=== PATIENT | female | born 1985 | race African-American/Black ===

== ENCOUNTER 2021-12-11 11:26 | Inpatient (IN) ==
[2021-12-11] MEDS ORDERED: METHYLERGONOVINE 0.2 MG/1 ML AMP IM PRN (12:56)
[2021-12-11] MEDS ORDERED: TRANEXAMIC ACID 1,000 MG in SODIUM CHLORIDE 0.9% 100 ML IV PRN (12:56)
[2021-12-11] MEDS ORDERED: OXYTOCIN/LR 20 UNIT/1,000 ML BAG IV ONE (12:56)
[2021-12-11] MEDS ORDERED: CARBOPROST TROMETHAMINE 250 MCG/ML AMP IM PRN (12:56)
[2021-12-11] MEDS ORDERED: miSOPROStoL 200 MCG TABLET RECTAL PRN (12:56)
[2021-12-11 13:26] LABS: Basophils % 0.2 % (0.0-0.8); Eosinophils # 0.1 10*3/uL (0.0-0.87); Hematocrit 33.5 VOL% (35.7-47.0); Hemoglobin 11.2 GM/DL (12.0-16.0); Immature Granulocytes % 0.5 %; Immature Granulocytes Absolute 0.04 #; Lymphocytes # 1.4 10*3/uL (1.4-4.0); Lymphocytes % 17.9 % (21.3-54.2); Mean Corpuscular HGB Conc 33.4 GM/DL (32-36); Mean Corpuscular Volume 84.2 FL (87-102); Mean Platelet Volume 12.6 FL (9.6-12.0); Monocytes % 7.5 % (1.7-12.7); Neutrophils % 72.9 % (38.7-73.9); Platelet Count 150 T/CUMM (130-400); Red Blood Count 3.98 MC/CUMM (3.8-5.5); Red Cell Distribution Width 12.8 % (9.3-17.3)
[2021-12-11] MEDS: LABETALOL 100 MG TABLET PO SCH ×2 (13:41→21:08)
[2021-12-11 13:51] LABS: Anisocytosis Slight; Hypochromia Slight; Lymphocytes 18 % (20-55); Platelet Estimate Adequate; Polychromasia Few; Segmented Neutrophils 71 % (50-85); Total Cells Counted 100
[2021-12-12] MEDS ORDERED: MEPERIDINE 50 MG/1 ML VIAL IV ONE (04:56)
[2021-12-12] MEDS ORDERED: FAMOTIDINE 20 MG/2 ML VIAL IV ONE (06:00)
[2021-12-12] MEDS ORDERED: ceFAZolin 2,000 MG/50 ML DUPLEX IV ONE (06:00)
[2021-12-12] MEDS ORDERED: CITRIC ACID/SODIUM CITRATE 30 ML UDCUP PO ONE (06:00)
[2021-12-12] MEDS: LACTATED RINGERS 1,000 ML IV SCH ×2 (06:15→14:47)
[2021-12-12] MEDS ORDERED: OXYTOCIN/LR 30 UNIT/1,000 ML BAG IV ONE (07:40)
[2021-12-12] MEDS ORDERED: OXYTOCIN 10 UNIT/ML VIAL IM ONE (07:40)
[2021-12-12] MEDS: LABETALOL 100 MG TABLET PO SCH (08:30)
[2021-12-12] MEDS ORDERED: PHENYLEPHRINE 1 MG/10 ML SYRINGE IV ONE (14:56)
[2021-12-12] MEDS ORDERED: ONDANSETRON 4 MG/2 ML VIAL ONE (14:56)
[2021-12-12] MEDS ORDERED: BUPIVACAINE SPINAL 0.75% 2 ML AMP SPINAL ONE (14:56)
[2021-12-12] MEDS ORDERED: buprenorphine HCL 0.3 MG/ML VIAL ONE (14:57)
[2021-12-12] MEDS ORDERED: KETOROLAC 30 MG/1 ML VIAL ONE (15:34)
[2021-12-12] MEDS ORDERED: ACETAMINOPHEN INJ 1,000 MG/100 ML VIAL IV ONE (15:34)
[2021-12-12 15:48] LABS: Cord Arterial Blood HCO3 25.4 MMOL/L
[2021-12-12 15:50] LABS: Cord Venous Blood HCO3 22.7 MMOL/L; Cord Venous Blood PCO2 40.8 MMHG; Cord Venous Blood PO2 23.9 MMHG
[2021-12-12 15:52] LABS: Bacteria,Urine Occasional /HPF (Few); RBC,Urine <1 /HPF (0-4); Squamous Epithelial Cell,Urine Occasional /HPF (0-10)
[2021-12-12 15:58] LABS: Bilirubin,Urine Negative (Negative); Blood, Urine Negative (Negative); Glucose,Urine (UA) Negative (Negative); Ketones,Urine Negative (Negative); Nitrite,Urine Negative (Negative); Protein,Urine Negative (Negative); Urine Appearance Clear (Clear); Urine Color Light Yellow (Yellow); Urine Specific Gravity 1.015 (1.001-1.035); Urine Urobilinogen 0.2 eU/dL (<2.0); Urine pH 6.5 (4.5-8.0)
[2021-12-12] MEDS ORDERED: OXYTOCIN/LR 20 UNIT/1,000 ML BAG IV ONE (16:50)
[2021-12-12] MEDS ORDERED: ONDANSETRON 4 MG/2 ML VIAL IV PRN (16:50)
[2021-12-12] MEDS ORDERED: ACETAMINOPHEN 325 MG TABLET PO PRN (16:50)
[2021-12-12] MEDS ORDERED: MAGNESIUM HYDROXIDE SUSP 30 ML UDCUP PO PRN (16:50)
[2021-12-12] MEDS ORDERED: RHO(D) IMMUNE GLOBULIN 300 MCG SYRINGE IM ONE (16:50)
[2021-12-12] MEDS ORDERED: LACTATED RINGERS 1,000 ML IV SCH (17:00)
[2021-12-12] MEDS: DOCUSATE SODIUM 100 MG CAPSULE PO SCH (21:24)
[2021-12-12 23:12] LABS: Basophils % 0.2 % (0.0-0.8); Eosinophils # 0.1 10*3/uL (0.0-0.87); Eosinophils % 0.8 % (0.00-10.9); Hematocrit 32.3 VOL% (35.7-47.0); Hemoglobin 10.5 GM/DL (12.0-16.0); Immature Granulocytes % 0.4 %; Immature Granulocytes Absolute 0.04 #; Lymphocytes # 1.2 10*3/uL (1.4-4.0); Lymphocytes % 13.3 % (21.3-54.2); Mean Corpuscular HGB Conc 32.5 GM/DL (32-36); Mean Corpuscular Volume 84.6 FL (87-102); Mean Platelet Volume 12.2 FL (9.6-12.0); Monocytes % 5.7 % (1.7-12.7); Neutrophils % 79.6 % (38.7-73.9); Platelet Count 138 T/CUMM (130-400); Red Blood Count 3.82 MC/CUMM (3.8-5.5); Red Cell Distribution Width 12.9 % (9.3-17.3); White Blood Count 9.2 T/CUMM (4-12)
[2021-12-13] MEDS ORDERED: KETOROLAC 30 MG/1 ML VIAL IV SCH (00:01)
[2021-12-13] MEDS ORDERED: ACETAMINOPHEN 500 MG TABLET PO SCH ×4 (00:01→06:00)
[2021-12-13] MEDS ORDERED: KETOROLAC 30 MG/1 ML VIAL IV PRN (00:42)
[2021-12-13] MEDS: ACETAMINOPHEN 500 MG TABLET PO SCH ×2 (01:20→09:28)
[2021-12-13 06:54] LABS: Basophils % 0.2 % (0.0-0.8); Eosinophils # 0.1 10*3/uL (0.0-0.87); Eosinophils % 0.8 % (0.00-10.9); Hematocrit 30.8 VOL% (35.7-47.0); Immature Granulocytes % 0.5 %; Immature Granulocytes Absolute 0.04 #; Lymphocytes # 1.3 10*3/uL (1.4-4.0); Lymphocytes % 15.3 % (21.3-54.2); Mean Corpuscular HGB Conc 32.5 GM/DL (32-36); Mean Corpuscular Volume 84.6 FL (87-102); Mean Platelet Volume 12.5 FL (9.6-12.0); Monocytes % 5.1 % (1.7-12.7); Neutrophils % 78.1 % (38.7-73.9); Platelet Count 137 T/CUMM (130-400); Red Blood Count 3.64 MC/CUMM (3.8-5.5); White Blood Count 8.2 T/CUMM (4-12)
[2021-12-13] MEDS: METOCLOPRAMIDE 10 MG TABLET PO SCH ×2 (08:03→16:15)
[2021-12-13] MEDS: MULTIVITAMIN (PRENATAL) TABLET PO SCH (09:27)
[2021-12-13] MEDS: DOCUSATE SODIUM 100 MG CAPSULE PO SCH ×2 (09:27→20:28)
[2021-12-13] MEDS: LABETALOL 100 MG TABLET PO SCH ×2 (09:28→20:27)
[2021-12-13] MEDS: SIMETHICONE CHEW 80 MG TABLET PO PRN (09:29)
[2021-12-14] MEDS: IBUPROFEN 800 MG TABLET PO PRN ×2 (00:10→08:33)
[2021-12-14 07:13] VITALS: BP 117/74
[2021-12-14] MEDS: SIMETHICONE CHEW 80 MG TABLET PO PRN (08:25)
[2021-12-14] MEDS: MULTIVITAMIN (PRENATAL) TABLET PO SCH (08:26)
[2021-12-14] MEDS: DOCUSATE SODIUM 100 MG CAPSULE PO SCH (08:26)
[2021-12-14] MEDS: METOCLOPRAMIDE 10 MG TABLET PO SCH ×2 (10:02)
== END 2021-12-14 12:00 | disposition home or self-care (01) | DRG 788 ==
LOC: N.LDOUT 11:26 → N.LD 11:28 → N.OB 12-12 20:45
PROVIDERS: ADMIT Obstetrics & Gynecology; ATTEND Obstetrics & Gynecology
PROC: LDCSECT (ICD-10-PCS; 2021-12-12 12:00)